=== PATIENT | female | born 1965 | race Hispanic/Latino ===

== ENCOUNTER 2019-07-27 10:00 | Outpatient (RCR) | payer BC | END 2019-07-30 | LOC: PT 10:00 | PROVIDERS: ATTEND Neurological Surgery | DX: M50.122 Cervical disc disorder at C5-C6 level with radiculopathy (principal) ==

== ENCOUNTER 2019-08-15 12:28 | Outpatient (RCR) | payer BC | END 2019-08-29 | LOC: PT 12:28 | PROVIDERS: ATTEND Internal Medicine Rheumatology | DX: M50.122 Cervical disc disorder at C5-C6 level with radiculopathy (principal) ==